=== PATIENT | male | born 1970 | race Caucasian/White ===

== ENCOUNTER 2024-11-27 10:42 | Emergency (ER) | payer OTHER, SELFPAY ==
[2024-11-27 10:54] VITALS: BP 152/79
--- NOTE | 2024-11-27 12:30 | ED.SKININJ ---
HPI-Injury
General
Chief Complaint: Skin Surface Trauma
Source: patient
Exam Limitations: none
Time Seen by Provider: 11/27/24 12:07
Nursing documentation reviewed up to this point in time: agreed with
History of Present Illness-Injury
Initial Injury comments:
54-year-old male with no past medical history states he cut his left index finger with a chainsaw at home about 2-1/2 hours ago, he went to urgent care and they sent him here. He denies numbness or tingling distal to the injury. He is unsure of
his last tetanus immunization.
Past History
Past History
ED Past Medical History: None
ED Past Surgical History: None
Social History
Tobacco: Non-smoker
Alcohol: None
Personal:
Living: with family
Employment: Employed
Review of Systems
Review of Systems
Allergies reviewed?: Yes
All Other Systems: ROS reviewed and negative except as documented in HPI and ROS
Skin: Reports other (Cut right index finger)
Neurological: Denies numbness
Skin Exam
Laceration
base right index finger dorsum:
Length in cm: 1.5
Orientation: vertical
Type of Laceration: simple
Any active bleeding?: low grade venous oozing
Distal skin color and temperature: normal-warm & good color
Normal distal neurovascular exam: Yes
Range of motion: full
Phy Exam
Physical Exam
Physical Exam:
PHYSICAL EXAMINATION:
General: no apparent distress, not acutely ill
Neuro: alert and oriented.
Psychiatric: well kept. interactive and cooperative
Musculoskeletal: Moves with ease.
Skin: Warm, pink.
Course
Orders/Labs/Results
Orders:
Orders
11/27/24 12:28
Tetanus/Diphth/Acelpertussis [Adacel] 0.5 ml IM .ONCE ONE
11/27/24 13:35
Finger(s)/Thumb 2 View Lt [CR Finger(s)/thumb Min 2 Vw Lt] Urgent
Comment:
Reason For Exam: left finger lac
Vital Signs
Initial and Last Documented VS:
Initial Vital Signs
Temp Pulse Resp BP Pulse Ox
98.5 F 75 16 152/79 99
11/27/24 10:54 11/27/24 10:54 11/27/24 10:54 11/27/24 10:54 11/27/24 10:54
Last Documented Vital Signs
Temp Pulse Resp BP Pulse Ox
98.5 F 75 16 152/79 99
11/27/24 10:54 11/27/24 10:54 11/27/24 10:54 11/27/24 10:54 11/27/24 10:54
Procedures
Laceration Closure
base R index finger dorsum:
Status of Wound: clean
Size of Wound in cm: 1.5
Description of Wound Edges: sharp
Preparation: cleaned with saline
Anesthesia: 1% Lidocaine
Revision/Debridement: routine- no revision
Wound exploration: explored to base- no FB and no tendon involvement
Type of Closure: single layer closure
Skin Closure Material: 4-0 nylon
Number of sutures: 6
Additional information:
ATB ointment and dressing applied
MDM/Problems Addressed
MDM/Problems Addressed:
54-year-old male with no past medical history states he cut his left index finger with a chainsaw at home about 2-1/2 hours ago, he went to urgent care and they sent him here. He denies numbness or tingling distal to the injury. He is unsure of
his last tetanus immunization.
X-ray of left index finger reveals no fracture or foreign body
*Critical Care Note
Total Time (30-74mins, 75-104mins- exclusive of procedures): Not Applicable
ED Attending Note
-
Portions of this chart may have been created with voice recognition software.� Occasional wrong word or��sound alike� substitutions may have occurred due to the inherent limitations of voice recognition software.
Discharge Plan
Departure
Patient Disposition: Home (Routine Discharge)
Date of Disposition: 11/27/24
Time of Disposition: 13:46
Patient with high blood pressure during this ER visit?: No
Condition: Good
Discharge Problem:
Laceration of left index finger
Instructions: Laceration Repair With Stitches (DC)
Prescriptions:
No Action
cephalexin 500 mg capsule
1,000 mg PO BID 7 Days Qty: 28 0RF
Referrals:
Rustam Aguirre MD [Family Provider] - Call in 1-3 days for appt
Activity Restrictions/Additional Instructions:
As we discussed, have the sutures removed in 12 to 14 days.
Keep the wound clean, dry and covered except for bathing until then. Seek medical care immediately for signs of infection which may include increasing redness, swelling, pus drainage, fever, red streak up the arm.
Interventions
Interventions:
*Risk Screen - Suicide Last Done: 11/27/24 10:54
*General Assessment Last Done: 11/27/24 10:54
*Neglect/Abuse Screening Last Done: 11/27/24 11:41
*ED- Fall Risk Assessment Last Done: 11/27/24 11:41
*ED COVID-19 Vaccine History Last Done: 11/27/24 11:41
*Nursing Disposition Last Done: 11/27/24 14:10
ED-Skin Assessment Last Done: 11/27/24 11:40
Discharge Date and Time
Discharge Date/Time: 11/27/24 14:11
Print Language: PUERTO RICAN
[2024-11-27] MEDS: ADACEL 0.5 ML IM (12:37)
== END 2024-11-27 14:11 | disposition home or self-care (01) ==
LOC: EMR 10:42
PROVIDERS: EMERGENCY PHYSICIAN Emergency Medicine; FAMILY PHYSICIAN Internal Medicine
DX: S61.211A Laceration without foreign body of left index finger without damage to nail, initial encounter (principal); W29.3XXA Contact with powered garden and outdoor hand tools and machinery, initial encounter; Z23 Encounter for immunization
CPT/HCPCS: 99283; 12001; 90471; 73140; 90715